=== PATIENT | female | born 1940 | race Caucasian/White ===

== ENCOUNTER 2019-02-16 13:50 | Emergency (ER) | payer MEDICARE ==
[2019-02-16 13:59] VITALS: BP 114/74
--- NOTE | 2019-02-16 14:20 | UC ---
Skin Complaint HPI - HPI Summary HPI Summary: 2 wks ago had what she thought was an itchy bug bite at L elbow. since area has become itchy, somewhat tender and she feels it looks like a bull's eye rash. she does not recall a tick being removed/attached. She is outdoors quite a bit. denies joint aches or fever. - History of Current Complaint Chief Complaint: UCSkin Time Seen by Provider: 02/16/19 14:15 Stated Complaint: INSECT BITE Hx Obtained From: Patient Pain Intensity: 5 Pain Scale Used: 0-10 Numeric Aggravating Factor(s): Nothing Alleviating Factor(s): Nothing - Allergy/Home Medications Allergies/Adverse Reactions: Allergies Allergy/AdvReac Type Severity Reaction Status Date / Time Sulfa (Sulfonamide Allergy Rash Verified 02/16/19 14:00 Antibiotics) PMH/Surg Hx/FS Hx/Imm Hx - Additional Past Medical History Additional PMH: no chronic conditions Previously Healthy: Yes - Surgical History Surgical History: None - Family History Known Family History: Positive: Non-Contributory - Social History Alcohol Use: Occasionally Substance Use Type: None Smoking Status (MU): Heavy Every Day Tobacco Smoker Review of Systems All Other Systems Reviewed And Are Negative: Yes Constitutional: Positive: Negative Skin: Positive: Rash - L elbow Respiratory: Positive: Negative Cardiovascular: Positive: Negative Musculoskeletal: Negative: Arthralgia Neurological: Negative: Headache Physical Exam Triage Information Reviewed: Yes Appearance: Well-Appearing Vital Signs: Initial Vital Signs Temp 95.9 F 02/16/19 13:55 Pulse 100 02/16/19 13:55 Resp 20 02/16/19 13:55 BP 114/74 02/16/19 13:55 Pulse Ox 100 02/16/19 13:55 Skin: Positive: Significant Lesion(s) - L elbow has erythematous , non indurated ,non tender 4 in. area that is pruritic and a small scab in the middle. Course/Dx - Course Course Of Treatment: Bug bite pt thought is bull's eye rash. Exposure to ticks in her area and works in garden daily. Not thought to be quite a bull's eye rash and since there is no hx of tick bite low liklihood. After some discussion we have agreed to tx given endemic area and could be risk of Lyme, although low. Tx for Lyme can also tx some cellulitis which I think this is. She agrees obtaining tx for one antibx that could tx both. - Differential Diagnoses - Skin Complaint Differential Diagnoses: Systemic Illness, Tick Born Illness - Diagnoses Provider Diagnosis: Cellulitis, Bug bite Discharge - Sign-Out/Discharge Documenting (check all that apply): Patient Departure All imaging exams completed and their final reports reviewed: No Studies - Discharge Plan Condition: Good Disposition: HOME Prescriptions: DOXYcycline CAP(*) [DOXYcycline 100MG CAP(*)] 100 mg PO BID 14 Days #27 cap Patient Education Materials: Cellulitis (ED) Referrals: Casandra Bruce MD [Primary Care Provider] - Additional Instructions: If not improving please follow up with primary care - Billing Disposition and Condition Condition: GOOD Disposition: Home
[2019-02-16] MEDS ORDERED: DOXYcycline CAP(*) 100 MG PO ONE (14:41)
== END 2019-02-16 15:20 | disposition home or self-care (01) ==
LOC: UCEAST 13:50
DX: S50.362A Insect bite (nonvenomous) of left elbow, initial encounter (principal); L03.114 Cellulitis of left upper limb; W57.XXXA Bitten or stung by nonvenomous insect and other nonvenomous arthropods, initial encounter; Y92.9 Unspecified place or not applicable; F17.210 Nicotine dependence, cigarettes, uncomplicated; Z88.2 Allergy status to sulfonamides
CPT/HCPCS: 99212; A9270-GY; G0463